=== PATIENT | female | born 1975 | race Caucasian/White ===

== ENCOUNTER 2023-02-26 00:19 | Emergency (ER) | payer MEDICAID ==
[~2023-02-26] VITALS: Ht 170.2 cm; Wt 61.2 kg
[2023-02-26 00:59] VITALS: BP_SYST 145
--- NOTE | 2023-02-26 01:05 | NUR ---
Patient triaged and placed in waiting room. VSS and patient appears in no acute distress at this time. Accompanied by SISTER, awaiting available bed, and MD notified of need for MSE.
[2023-02-26] MEDS ORDERED: NACL 0.9% 1,000 ML IV ONE (02:15)
[2023-02-26] MEDS ORDERED: METOCLOPRAMIDE HCL 10 MG/2 ML VIAL IVP ONE (02:15)
[2023-02-26] MEDS ORDERED: LORazepam 2 MG/ML VIAL IVP ONE (02:30)
[2023-02-26] MEDS ORDERED: KETOROLAC TROMETHAMINE 30 MG VIAL IVP ONE (02:30)
[2023-02-26 02:49] LABS: EOSINOPHILS # (AUTO) 0.4 K/uL (0.0-0.4); EOSINOPHILS % (AUTO) 10.2 % (0.0-4.0); HEMATOCRIT 40.8 % (36-48); LYMPHOCYTES # (AUTO) 0.9 K/uL (1.0-5.5); LYMPHOCYTES % (AUTO) 19.7 % (20.5-51.5); MEAN CORPUSCULAR HEMOGLOBIN 33 pg (27-31); MEAN CORPUSCULAR HGB CONC 34 % (32-36); MEAN CORPUSCULAR VOLUME 96 fL (79.0-98.0); MONOCYTES # (AUTO) 0.4 K/uL (0.0-1.0); MONOCYTES % (AUTO) 9.6 % (1.7-9.3); NEUTROPHILS # (AUTO) 2.6 K/uL (1.8-7.7); NEUTROPHILS % (AUTO) 59.5 % (40.0-70.0); PLATELET COUNT (AUTO) 292 K/uL (130-430); RED BLOOD CELL COUNT(AUTO) 4.26 MIL/uL (4.2-6.2); RED CELL DISTRIBUTION WIDTH 13.1 % (9.0-15.0); WHITE BLOOD COUNT (AUTO) 4.4 K/uL (4.8-10.8)
[2023-02-26 02:50] LABS: CALCIUM 8.7 mg/dL (8.4-11.0); CREATININE 0.92 mg/dL (0.55-1.30)
[2023-02-26 02:54] LABS: ALBUMIN 3.6 g/dL (3.4-4.8); TOTAL BILIRUBIN 0.4 mg/dL (0.0-1.0)
[2023-02-26 02:55] LABS: ERYTHROCYTE SEDIMENTATION RATE 7 MM/HR (0-20)
[2023-02-26 04:39] VITALS: BP_SYST 130
[2023-02-26] MEDS ORDERED: NAPR-686 PO (04:43)
[2023-02-26] MEDS ORDERED: DIAZ2TAB3 PO (04:43)
== END 2023-02-26 06:39 | disposition home or self-care (01) ==
LOC: SED 00:19
DX: M54.81 Occipital neuralgia (principal); H81.391 Other peripheral vertigo, right ear; R11.2 Nausea with vomiting, unspecified; F17.200 Nicotine dependence, unspecified, uncomplicated; Z79.899 Other long term (current) drug therapy
CPT/HCPCS: 99284; 96374; 96375; 80053; 83690; 85025; 85651; 36415; J1885; J2060; J2765